=== PATIENT | male | born 1955 | race Caucasian/White ===

== ENCOUNTER 2018-11-04 07:54 | Outpatient (CLI) | payer BC ==
--- NOTE | 2018-11-04 09:47 | MRI ---
MRI LUMBAR SPINE NONCONTRAST: DATE: 11/04/2018 HISTORY: 62-year-old male with low back pain and bilateral lumbar radiculopathy. COMPARISON: None available FINDINGS: For the purposes of this report, it will be assumed that there are 5 lumbar-type vertebrae. Vertebral body heights are maintained. Conus medullaris terminates at L1. Modic type II endplate marrow changes at multiple levels. No high-grade bone marrow signal abnormalit y otherwise. Developmentally small caliber spinal canal due to short pedicles, exacerbated by lumbar spondylosis. T12-L1:Disc space maintained. Mild disc bulge. No high-grade central or neural foraminal stenosis. L1-2:Moderate disc space narrowing (severe disc space narrowing anteriorly). Disc bulge. Mild central stenosis. Mild bilateral neural foraminal stenosis. L2-3:Moderate disc space narrowing. Slight degenerative retrolisthesis of L2 on L3. Moderate size dif fuse disc bulge. Mild to moderate central spinal canal stenosis. Moderate thecal sac stenosis. Mild to moderate right neural foraminal stenosis. Moderate left neural foraminal stenosis. L3-4:Disc space maintained. Diffuse disc bulge. Mild to moderate bilateral neural foraminal stenosis, right greater than left. Mild ligamentum flavum thickening. Mild to moderate right facet DJD. Mild left facet DJD. Mild to moderate central spinal canal stenosis. L4-5:Moderate bilateral facet DJD with facet joint effusions. Mild disc space narrowing. Prominent di ffuse disc bulge. Slight degenerative retrolisthesis of L4 on L5. Moderate bilateral neural foraminal stenosis. Mild central spinal canal stenosis. Lateral recess stenosis bilaterally. L5-S1:Bilateral L5 pars interarticularis defects causing a grade 1 anterolisthesis of L5 on S1. Diffu se disc bulge. Mild to moderate disc space narrowing. Moderate right neural foraminal stenosis. Moderate to severe left neural foraminal stenosis with chronic compression and flattening of the exit ing left L5 nerve root craniocaudally. No high-grade central stenosis. IMPRESSION: 1) grade 1 spondylolisthesis at L5-S1 due to bilateral L5 spondylolysis. 2) high-grade bilateral neural foraminal stenosis at L5-S1, with chronic impingement on bilateral exi ting L5 nerve roots, especially on the left. 3. Lumbar spondylosis with multilevel degenerative disc disease throughout the entire lumbar spine, a nd lower level facet osteoarthrosis.
== END 2018-11-04 07:55 | disposition home or self-care (01) ==
LOC: SCSMRI 07:54
PROVIDERS: ATTEND Family Medicine
DX: M54.5 Low back pain (principal); M43.17 Spondylolisthesis, lumbosacral region; M43.07 Spondylolysis, lumbosacral region; M48.07 Spinal stenosis, lumbosacral region; M51.36 Other intervertebral disc degeneration, lumbar region; M47.816 Spondylosis without myelopathy or radiculopathy, lumbar region
CPT/HCPCS: 72148; 82565